=== PATIENT | female | born 1960 | race Caucasian/White ===

== ENCOUNTER 2018-10-01 14:36 | Emergency (ER) | payer BC ==
[2018-10-01 14:41] VITALS: RESP 18
--- NOTE | 2018-10-01 15:03 | ED ---
General Adult HPI - General Chief complaint: Back Pain/Injury Stated complaint: Back and neck pain Time Seen by Provider: 10/01/18 14:50 Source: patient, RN notes reviewed Mode of arrival: ambulatory Limitations: no limitations - History of Present Illness Initial comments: Patient is a 58-year-old female who presents the emergency department with complaints of back and neck pain radiating to her right arm (with tingling) for 2 weeks. She denies any trauma or heavy lifting. She also complains of frequent urination (currently) with burning urination 2 days ago. Patient denies any recent bowel or bladder incontinence, saddle anesthesia, fever, shortness of breath, chest pain, nausea or vomiting, numbness, headaches or visual changes, or any other complaints. - Related Data Previous Rx's Medication Instructions Recorded Famotidine [Pepcid] 20 mg PO DAILY #14 tablet 07/21/16 Orphenadrine [Norflex] 100 mg PO Q12H PRN #20 tablet.er 10/01/18 predniSONE 60 mg PO DAILY 5 Days tab 10/01/18 Allergies Allergy/AdvReac Type Severity Reaction Status Date / Time naproxen [From Naprosyn] Allergy Unknown Verified 10/01/18 14:41 naproxen sodium [From Aleve] Allergy Unknown Verified 10/01/18 14:41 Review of Systems ROS Statement: Those systems with pertinent positive or pertinent negative responses have been documented in the HPI. ROS Other: All systems not noted in ROS Statement are negative. Past Medical History Past Medical History: No Reported History Additional Past Medical History / Comment(s): vertigo History of Any Multi-Drug Resistant Organisms: None Reported Past Surgical History: Hysterectomy Past Psychological History: No Psychological Hx Reported Smoking Status: Current every day smoker Past Alcohol Use History: None Reported Past Drug Use History: None Reported General Exam Limitations: no limitations General appearance: alert, in no apparent distress Head exam: Present: atraumatic, normocephalic Eye exam: Present: normal appearance, PERRL, EOMI Pupils: Present: normal accommodation ENT exam: Present: normal oropharynx, mucous membranes moist Neck exam: Present: normal inspection, full ROM, other (No tenderness to palpation.) Respiratory exam: Present: normal lung sounds bilaterally Cardiovascular Exam: Present: regular rate, normal rhythm GI/Abdominal exam: Present: soft, normal bowel sounds Extremities exam: Present: full ROM, normal capillary refill Back exam: Present: normal inspection, full ROM, other (No tenderness to palpation. No CVA tenderness.) Neurological exam: Present: alert, oriented X3, CN II-XII intact Psychiatric exam: Present: normal affect, normal mood Skin exam: Present: warm, dry Course Vital Signs 10/01/18 10/01/18 14:39 16:47 Temperature 97.9 F 97 F L Pulse Rate 82 98 Respiratory 18 18 Rate Blood Pressure 154/88 157/88 O2 Sat by Pulse 100 98 Oximetry Medical Decision Making - Medical Decision Making Cervical spine x-ray reveals no acute fracture or dislocation; however, there are degenerative changes. Given Tylenol here for pain. Urine culture ordered. Patient reports that she has taken ibuprofen without any reactions. Prescribed Norflex and prednisone. Case discussed in detail with attending physician Dr. Hall. - Lab Data Lab Results 10/01/18 Range/Units Unknown Urine Color Light Yellow Urine Appearance Clear (Clear) Urine pH 5.0 (5.0-8.0) Ur Specific [place] 1.014 (1.001-1.035) Urine Protein Negative (Negative) Urine Glucose (UA) Negative (Negative) Urine Ketones Negative (Negative) Urine Blood Negative (Negative) Urine Nitrite Negative (Negative) Urine Bilirubin Negative (Negative) Urine Urobilinogen <2.0 (<2.0) mg/dL Ur Leukocyte Esterase Small H (Negative) Urine RBC <1 (0-5) /hpf Urine WBC 1 (0-5) /hpf Ur Squamous Epith Cells 1 (0-4) /hpf Urine Bacteria Rare H (None) /hpf Urine Mucus Rare H (None) /hpf Disposition Clinical Impression: Degeneration of intervertebral disc Disposition: HOME SELF-CARE Condition: Good Instructions: Cervical Radiculopathy (ED) Additional Instructions: Follow-up with PCP in 2 days. Return to the emergency department if your symptoms worsen or any other concerns. Prescriptions: Orphenadrine [Norflex] 100 mg PO Q12H PRN #20 tablet.er PRN Reason: Muscle Pain predniSONE 60 mg PO DAILY 5 Days tab Is patient prescribed a controlled substance at d/c from ED?: No Referrals: None,Stated [Primary Care Provider] - 1-2 days Panda Padilla MD [REFERRING] - 1-2 days Time of Disposition: 16:40
[2018-10-01 15:44] LABS: Appearance,Urine Clear (Clear); Bacteria,Urine Rare /hpf; Bilirubin,Urine Negative (Negative); Blood,Urine Negative (Negative); Color,Urine Light Yellow; Glucose,Urine (UA) Negative (Negative); Ketones,Urine Negative (Negative); Leukocyte Esterase,Urine Small (Negative); Mucus,Urine Rare /hpf; Nitrite,Urine Negative (Negative); Protein,Urine Negative (Negative); RBC,Urine <1 /hpf (0-5); Specific Gravity,Urine 1.014 (1.001-1.035); Squamous Epithelial Cell,Urine 1 /hpf (0-4); Urobilinogen,Urine <2.0 mg/dL (<2.0); WBC,Urine 1 /hpf (0-5)
--- NOTE | 2018-10-01 15:55 | XR ---
EXAMINATION TYPE: XR cervical spine comp DATE OF EXAM: 10/01/2018 CLINICAL HISTORY: pain COMPARISON: NONE TECHNIQUE: Frontal, lateral, oblique, swimmers, and open mouth view of the cervical spine are obtaine d. FINDINGS: The cervical spine is visualized in its entirety from C1 thru the top of T1 level. It is s atisfactory in alignment without evidence of acute fracture or dislocation. The pre-vertebral soft t issue appears within normal limits. Moderate degenerative disc space narrowing and mild spondylosis e xtending from C4 through C6-7. Right-sided foraminal encroachment noted at C5-6. The C1-C2 articulati on is unremarkable on the open mouth view. IMPRESSION: No acute fracture or dislocation is seen in the cervical spine. Degenerative changes as discussed. ICD 10 NO FRACTURE, INITIAL EVALUATION
[2018-10-01] MEDS ORDERED: KETOROLAC 60 MG/2 ML VIAL IM STA (16:19)
[2018-10-01] MEDS ORDERED: ACETAMINOPHEN TAB 500 MG TAB PO STA (16:33)
[2018-10-01 16:48] VITALS: BP 157/88; PULSE 98; TEMP 97
== END 2018-10-01 16:45 | disposition home or self-care (01) ==
LOC: EC 14:36
DX: M50.30 Other cervical disc degeneration, unspecified cervical region (principal); R35.0 Frequency of micturition; F17.200 Nicotine dependence, unspecified, uncomplicated; Z90.710 Acquired absence of both cervix and uterus; Z88.6 Allergy status to analgesic agent
CPT/HCPCS: 72050; 81001; 87086; 99283

== ENCOUNTER → 2019-11-26 | Outpatient (CLI) | payer BC ==
--- NOTE | 2019-11-27 14:07 | MM ---
Reason for exam: screening (asymptomatic). Last mammogram was performed 2 years and 5 months ago. Physical Findings: A clinical breast exam by your physician is recommended on an annual basis and results should be correlated with mammographic findings. MG 3D Screening Mammo W/Cad Bilateral CC and MLO view(s) were taken. Prior study comparison: June 25, 2017, mammogram, performed at [facility]. May 16, 2015, mammogram, performed at [facility]. The breast tissue is heterogeneously dense. This may lower the sensitivity of mammography. Stable benign calcifications. No significant changes when compared with prior studies. ASSESSMENT: Benign, BI-RAD 2 RECOMMENDATION: Routine screening mammogram of both breasts in 1 year.
== END | disposition home or self-care (01) ==
LOC: RADMAMWWP 11:41
PROVIDERS: ATTEND Family Medicine
DX: Z12.31 Encounter for screening mammogram for malignant neoplasm of breast (principal)
CPT/HCPCS: 77063; 77067

== ENCOUNTER → 2021-01-26 | Outpatient (CLI) | payer BC ==
--- NOTE | 2021-01-26 15:12 | XR ---
EXAMINATION TYPE: XR ribs LT DATE OF EXAM: 01/26/2021 COMPARISON: None HISTORY: Pain TECHNIQUE: 2 view left RIBS FINDINGS: No acute or subacute fractures are identified. No pneumothorax is evident on these images. IMPRESSION: 1. Normal left ribs
== END | disposition home or self-care (01) ==
LOC: RADXRMAIN 13:41
PROVIDERS: ATTEND Family Medicine
DX: R07.81 Pleurodynia (principal)

== ENCOUNTER → 2021-02-20 | Outpatient (CLI) | payer BC ==
--- NOTE | 2021-02-21 08:53 | MM ---
Reason for exam: screening (asymptomatic). Last mammogram was performed 1 year and 3 months ago. History: Patient is postmenopausal. Physical Findings: A clinical breast exam by your physician is recommended on an annual basis and results should be correlated with mammographic findings. MG 3D Screening Mammo W/Cad Bilateral CC and MLO view(s) were taken. Prior study comparison: November 26, 2019, bilateral MG 3d screening mammo w/cad. June 25, 2017, mammogram, performed at [facility]. The breast tissue is heterogeneously dense. This may lower the sensitivity of mammography. There is chronic nodularity in the right breast. There is no discrete abnormality. ASSESSMENT: Benign, BI-RAD 2 RECOMMENDATION: Routine screening mammogram of both breasts in 1 year.
== END | disposition home or self-care (01) ==
LOC: RADMAMWWP 10:17
PROVIDERS: ATTEND Family Medicine
DX: Z12.31 Encounter for screening mammogram for malignant neoplasm of breast (principal)
CPT/HCPCS: 77063; 77067